=== PATIENT | female | born 1955 | race Caucasian/White ===

== ENCOUNTER 2018-11-12 07:04 | Day surgery (SDC) | payer BC ==
[~2018-11-12 07:04] MED LIST: ACETAMINOPHEN 1,000 MG/100 ML BTL IV ONE
[2018-11-12] MEDS ORDERED: ONDANSETRON HCL IV 4 MG/2 ML VIAL IVP ONE (07:05)
[2018-11-12] MEDS ORDERED: BUPIVACAINE 0.5% (5MG/ML) PF 30ML VIAL IVP ONE (07:05)
[2018-11-12] MEDS ORDERED: DEXAMETHASONE 4 MG/ML 1ML VIAL IVP ONE (07:05)
[2018-11-12] MEDS ORDERED: MIDAZOLAM HCL 2MG/2ML VIAL IV ONE (07:05)
[2018-11-12] MEDS ORDERED: BUPIVACAINE LIPOSOME/PF 133MG/10ML VIAL IV ONE (07:05)
[2018-11-12] MEDS ORDERED: SEVOFLURANE 250 ML INH ONE (07:05)
[2018-11-12] MEDS ORDERED: FENTANYL PF 100MCG/2ML VIAL IV ONE (07:05)
[2018-11-12] MEDS ORDERED: PROPOFOL 10 MG/ML VIAL IV ONE (07:05)
[2018-11-12] MEDS ORDERED: LIDOCAINE 2% MDV (20MG/ML) 20ML VIAL IV ONE (07:05)
--- NOTE | 2018-11-13 10:30 | Operative Note ---
DATE OF SURGERY: 11/12/2018 Surgeon: Gary Durant DO PREOPERATIVE DIAGNOSIS: Type 2 tear of the superior glenoid labrum, right shoulder. POSTOPERATIVE DIAGNOSIS: Type 2 tear of the superior glenoid labrum, right shoulder. OPERATION: Arthroscopic repair of superior glenoid labrum, right shoulder. DESCRIPTION OF PROCEDURE: This 63-year-old female was taken to the operating room and placed in the supine position on the operating room table. General anesthetic was administered. She was then placed in the beach chair position with all bony prominences well padded and the head well secured. The right shoulder prepped with Hibiclens and draped in the usual sterile fashion. A posterior portal was established in the glenohumeral joint, and initial evaluation of the joint demonstrated marked fraying of the superior and anterior glenoid labrum. The rotator cuff appeared to be normal. No articular cartilage defects of biceps, and subscapularis also appeared to be normal. An anterior portal was established and initial evaluation of the joint confirmed normal findings of the rotator cuff and biceps tendon. Subscapularis also appeared to be normal. We probed the labrum and there was disruption of the labrum from approximately the 12:30 position to about the 3-o'clock position. We subsequently used a rasp to denude soft tissue from the above-mentioned area, and rotating shaver also used to further debride this area. We debrided the significant fraying of the glenoid labrum with a rotating shaver. Once this had been accomplished, we placed 2 PushLock anchors; one at approximately the 1-o'clock position and the second at approximately the 2:30 position. This was performed through an anterior portal and these were knotless anchors. Once this had been accomplished, the repair was probed and found to be stable. Subsequently the wound was irrigated and suctioned. The instruments were removed. The portals closed with 4-0 nylon suture. Sterile dressings were applied. The patient was taken to the recovery room in satisfactory condition. GROSS PATHOLOGY: This patient demonstrated disruption of the superior and anterior glenoid labrum as described above which was repaired using two 3.5 [employer] PushLock anchors as described above. CC: MD GHISLAINE Alvarado
== END 2018-11-12 10:05 | disposition home or self-care (01) ==
LOC: SUR 07:04
PROVIDERS: ATTEND Orthopaedic Surgery
DX: S43.432A Superior glenoid labrum lesion of left shoulder, initial encounter (principal); J45.909 Unspecified asthma, uncomplicated; K21.9 Gastro-esophageal reflux disease without esophagitis
CPT/HCPCS: 29807; 01630; 64415; J2405; J3010; C9290; 76942